=== PATIENT | female | born 1980 | race African-American/Black ===

== ENCOUNTER 2017-12-17 08:46 | Observation (INO) | payer MEDICAID ==
[~2017-12-17] VITALS: Ht 175.3 cm; Wt 137.9 kg
[2017-12-17] MEDS ORDERED: PNV1TABL76 PO (09:23)
[2017-12-17] MEDS ORDERED: DEXT 5%/LACTATED RINGERS 1,000 ML IV SCH (09:30)
== END 2017-12-17 11:25 | disposition home or self-care (01) ==
LOC: L&D 08:46
PROVIDERS: ADMIT Obstetrics & Gynecology; ATTEND Obstetrics & Gynecology
DX: O26.853 Spotting complicating pregnancy, third trimester (principal); Z3A.32 32 weeks gestation of pregnancy
CPT/HCPCS: 76805; 76818; 99281; G0378; 96360; 96361

== ENCOUNTER 2021-04-03 00:54 | Emergency (ER) | payer MEDICAID, OTHER ==
[~2021-04-03] VITALS: Ht 165.1 cm; Wt 128.0 kg
[~2021-04-03 00:54] MED LIST: PNV1TABL76 PO
[2021-04-03 02:15] VITALS: BP 131/74
[2021-04-03] MEDS ORDERED: P50 MT (02:16)
== END 2021-04-03 02:20 | disposition home or self-care (01) ==
LOC: ER 00:54
DX: J33.9 Nasal polyp, unspecified (principal); R09.81 Nasal congestion
CPT/HCPCS: 99281

== ENCOUNTER 2021-04-08 22:17 | Emergency (ER) | payer OTHER ==
[~2021-04-08] VITALS: Ht 175.3 cm; Wt 128.0 kg
[~2021-04-08 22:17] MED LIST changes: +P50 MT
[2021-04-08] MEDS ORDERED: FLUT9.9S BOTHNSTRLS (23:02)
[2021-04-08] MEDS ORDERED: PREDNISONE 20MG TABLET PO ONE (23:15)
[2021-04-08 23:35] VITALS: BP 132/87
== END 2021-04-08 23:36 | disposition home or self-care (01) ==
LOC: ER 22:17
DX: R09.81 Nasal congestion (principal); J33.9 Nasal polyp, unspecified
CPT/HCPCS: 99283; J7512